=== PATIENT | female | born 1970 | race Caucasian/White ===

== ENCOUNTER 2020-03-04 16:54 | Emergency (ER) | payer MEDICARE, OTHER ==
[~2020-03-04] VITALS: Ht 165.1 cm; Wt 67.8 kg
--- NOTE | 2020-03-04 17:21 | ED Back Pain ---
General Chief Complaint: Back Problems Stated Complaint: BACK PAIN Source of Information: Patient Exam Limitations: No Limitations History of Present Illness Date Seen by Provider: Mar 04, 2020 Time Seen by Provider: 17:05 Initial Comments The patient is a pleasant 49-year-old female who presents for evaluation of left lower flank pain. She states that the pain began earlier this morning and feels internal and is not positional. She cannot find a tender location of elevated. She says that yesterday she was going up several flights of stairs in a hospital with an autistic family member who was pulling her and thinks that this could have caused some of her pain. 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 She denies fevers or chills, radiation of pain, abdominal pain, nausea or vomiting, diarrhea, rectal bleeding, urinary complaints, focal weakness or numbness. She is alert and oriented 4, calm, and appears to be in no distress this time. She does report a history of chronic back pain and takes hydrocodone and Flexeril for it. She drove herself to the emergency Department today and was able to angulate to the room without difficulty or assistance. Timing/Duration: 24 Hours Severity: Moderate Pain/Injury Location: Back Modifying Factors: Improves With Movement (makes it worse (such as climbing stairs)) Associated Symptoms: denies symptoms Allergies and Home Medications Allergies Coded Allergies: Sulfa (Sulfonamide Antibiotics) (Verified Allergy, Unknown, 03/04/20) sulfamethoxazole (Verified Allergy, Unknown, 03/04/20) trimethoprim (Verified Allergy, Unknown, 03/04/20) Patient Home Medication List Home Medication List Reviewed: Yes Review of Systems Constitutional: no symptoms reported EENTM: no symptoms reported Respiratory: no symptoms reported Cardiovascular: no symptoms reported Gastrointestinal: no symptoms reported Genitourinary: no symptoms reported Musculoskeletal: back pain Skin: no symptoms reported Psychiatric/Neurological: No Symptoms Reported All Other Systems Reviewed Negative Unless Noted: Yes Past Rkngbkq-Szvuze-Kmsfcn Hx Past Med/Social Hx: Reviewed Nursing Past Med/Soc Hx Patient Social History Recent Foreign Travel: No Contact w/Someone Who Travel: No Physical Abuse: No Sexual Abuse: No Mistreated: No Fear: No Physical Exam Vital Signs Vital Signs - First Documented 03/04/20 17:00 Temp 36.6 Pulse 91 Resp 18 B/P (MAP) 117/90 (99) Pulse Ox 99 O2 Delivery Room Air Capillary Refill : Height, Weight, BMI Height: '" Weight: lbs. oz. kg; BMI Method: General Appearance: No Apparent Distress, WD/WN HEENT: PERRL/EOMI, Pharynx Normal Neck: Full Range of Motion, Non Tender, Supple Cardiovascular: Regular Rate, Rhythm, No Edema, Normal Peripheral Pulses Respiratory: Lungs Clear, Normal Breath Sounds, No Accessory Muscle Use, No Respiratory Distress Gastrointestinal: No Organomegaly, No Pulsatile Mass, Non Tender, Soft Back: CVA Tenderness (L) (mild left, +spasm present, mild left vertebral ttp in L2-4 region) Extremity: Normal Capillary Refill, Normal Inspection, Normal Range of Motion, Non Tender, No Pedal Edema Neurologic/Psychiatric: Alert, Oriented x3, No Motor/Sensory Deficits, Normal Mood/Affect Skin: Normal Color, Warm/Dry Progress/Results/Core Measures Results/Orders Lab Results Laboratory Tests Test 03/04/20 17:35 Range/Units My Orders Orders - AMIE AUSTIN DO Comprehensive Metabolic Panel (03/04/20 17:16) Ketorolac Injection (Toradol Injection) (03/04/20 17:30) Lumbar Spine 2 Or 3 View (03/04/20 17:21) Medications Given in ED Current Medications Medications Dose Ordered Sig/Joaquin Route Start Time Stop Time Status Last Admin Dose Admin Ketorolac Tromethamine 60 mg ONCE ONCE IM 03/04/20 17:30 03/04/20 17:31 DC 03/04/20 17:35 60 MG Vital Signs/I&O 03/04/20 17:00 Temp 36.6 Pulse 91 Resp 18 B/P (MAP) 117/90 (99) Pulse Ox 99 O2 Delivery Room Air Progress Progress Note : Progress Note @1740 - patient updated on imaging results which are acutely unremarkable. She is ambulating without difficulty. Advised the patient to take the prescribed medicine as directed and to return to the emergency department for new or worsening symptoms and advised patient to follow up with her PCP in the next 1-2 days. Diagnostic Imaging Diagonstic Imaging: Xray Comments [facility], [place] NAME: MAIRA GOMEZ [facility] REC#: [id number] PT STATUS: REG ER : 1970 PHYSICIAN: AMIE AUSTIN DO ADMIT DATE: 03/04/20/ER FS Draft Date of Exam:03/04/20 LUMBAR SPINE 2 OR 3 VIEW INDICATION: Low back pain since earlier in the morning. TECHNIQUE: AP, lateral and spot imaging of the lumbar spine. CORRELATION STUDY: None. FINDINGS: Postoperative changes of posterior fusion with transpedicular screws and interconnecting rods at the L4 and L5 level. Intervertebral disc spacer device is also present. There is lucency over the L4 screws, right greater than left, suggestive of loosening. There is leftward curvature of the lumbar spine, apex at L3. Disc space narrowing at essentially all levels but most severe at the nonfused segments and greatest on the right along the concavity of the scoliotic curvature. There is no suggestion for acute bony abnormality. Prominent endplate lipping and marginal osteophyte formation, particularly at the L4, L3 and L2 levels. Various degrees of hypertrophic facet arthropathy are present. Underlying foraminal and/or canal narrowing not excluded. SI joints are unremarkable. IMPRESSION: Posterior fusion at L4-L5 level. There are findings suggestive of loosening around the particularly L4 screws, right greater than left. Leftward curvature of the lumbar spine. Advanced lumbar degenerative changes with significant disc space narrowing at essentially all levels of the lumbar spine, most pronounced along the concavity of the curvature. No acute bony abnormality. Dictated on workstation # [id number] Dict: 03/04/201729 Trans: 03/04/201735 [facility] [id number] Interpreted by: AMBIKA BOWERS DO Electronically signed by: Departure Impression Primary Impression: Low back pain Additional Impression: Muscle spasm Disposition: 01 HOME, SELF-CARE Condition: Stable Departure-Patient Inst. Decision time for Depature: 17:42 Referrals: NO,LOCAL PHYSICIAN (PCP/Family) Primary Care Physician Patient Instructions: Back Muscle Strain (DC), Low Back Pain (DC), Muscle Spasms (DC) Add. Discharge Instructions: Take the prescribed medicine as directed. Follow-up with your doctor in the next 1-2 days. Return to the emergency Department immediately for new or worsening symptoms. Scripts Diazepam (Valium) 2 Mg Tablet 2 MG PO Q4H for 4 Days, #12 TAB Prov: AMIE AUSTIN DO 03/04/20 AMIE AUSTIN DO Mar 04, 2020 17:21
[2020-03-04] MEDS ORDERED: KETOROLAC 60 MG/2 ML VIAL IM ONE (17:30)
--- NOTE | 2020-03-04 17:37 | Diagnostic Imaging Report ---
INDICATION: Low back pain since earlier in the morning. TECHNIQUE: AP, lateral and spot imaging of the lumbar spine. CORRELATION STUDY: None. FINDINGS: Postoperative changes of posterior fusion with transpedicular screws and interconnecting rods at the L4 and L5 level. Intervertebral disc spacer device is also present. There is lucency over the L4 screws, right greater than left, suggestive of loosening. There is leftward curvature of the lumbar spine, apex at L3. Disc space narrowing at essentially all levels but most severe at the nonfused segments and greatest on the right along the concavity of the scoliotic curvature. There is no suggestion for acute bony abnormality. Prominent endplate lipping and marginal osteophyte formation, particularly at the L4, L3 and L2 levels. Various degrees of hypertrophic facet arthropathy are present. Underlying foraminal and/or canal narrowing not excluded. SI joints are unremarkable. IMPRESSION: Posterior fusion at L4-L5 level. There are findings suggestive of loosening around the particularly L4 screws, right greater than left. Leftward curvature of the lumbar spine. Advanced lumbar degenerative changes with significant disc space narrowing at essentially all levels of the lumbar spine, most pronounced along the concavity of the curvature. No acute bony abnormality. Dictated by: Dictated on workstation # [id number]
[2020-03-04] MEDS ORDERED: DIAZ2TAB PO (17:45)
[2020-03-04 17:54] LABS: BACTERIA,URINE LARGE /HPF; BILIRUBIN,URINE NEGATIVE (NEGATIVE); CLARITY,URINE CLOUDY; COLOR,URINE YELLOW; GLUCOSE, URINE (UA) NEGATIVE (NEGATIVE); KETONES,URINE 1+ (NEGATIVE); LEUKOCYTE ESTERASE ,URINE NEGATIVE (NEGATIVE); NITRITE,URINE NEGATIVE (NEGATIVE); PROTEIN,URINE NEGATIVE (NEGATIVE); SQUAMOUS EPITHELIAL CELL,UR 25-50 /HPF
[2020-03-04 18:02] LABS: ALANINE AMINOTRANSFERASE 23 U/L (0-55); ALBUMIN 4.3 GM/DL (3.2-4.5); ALKALINE PHOSPHATASE 100 U/L (40-136); BILIRUBIN,TOTAL 0.2 MG/DL (0.1-1.0); BUN/CREATININE RATIO 12; CALCIUM 9.1 MG/DL (8.5-10.1); CARBON DIOXIDE 24 MMOL/L (21-32); CHLORIDE 105 MMOL/L (98-107); CREATININE SERUM 0.91 MG/DL (0.60-1.30); GFR ESTIMATED > 60; GLUCOSE 111 MG/DL (70-105); POTASSIUM 4.1 MMOL/L (3.6-5.0); SODIUM 141 MMOL/L (135-145); TOTAL PROTEIN 7.1 GM/DL (6.4-8.2)
[2020-03-04 18:24] VITALS: BP 117/90
[2020-03-05] MEDS ORDERED: MORP15TA PO (10:51)
== END 2020-03-04 18:24 | disposition home or self-care (01) ==
LOC: ER FS 16:57
DX: M54.5 Low back pain (principal); M62.838 Other muscle spasm; Z88.2 Allergy status to sulfonamides; Z88.1 Allergy status to other antibiotic agents
CPT/HCPCS: 36415; 72100; 80053; 81000; 87077; 87088

== ENCOUNTER 2020-03-05 08:16 | Emergency (ER) | payer MEDICARE ==
[~2020-03-05 08:16] MED LIST: DIAZ2TAB PO
[2020-03-05] MEDS ORDERED: KETOROLAC 30 MG/ML VIAL IVP ONE (09:00)
[2020-03-05] MEDS ORDERED: HYDROmorphone 2 MG/ML VIAL (DILAUDID) IVP ONE (09:00)
[2020-03-05 09:10] LABS: HEMATOCRIT 40 % (35-52); MEAN CORPUSCULAR HEMOGLOBIN 30 PG (25-34); MEAN CORPUSCULAR VOLUME 93 FL (80-99); WHITE BLOOD COUNT 6.1 10^3/uL (4.3-11.0)
[2020-03-05 09:11] LABS: BASOPHILS % (AUTO) 1 % (0-10); EOSINOPHILS # (AUTO) 0.1 10^3/uL (0.0-0.3); EOSINOPHILS % (AUTO) 2 % (0-10); LYMPHOCYTES # (AUTO) 1.5 X 10^3 (1.0-4.0); LYMPHOCYTES % (AUTO) 25 % (12-44); MEAN CORPUSCULAR HGB CONC 33 G/DL (32-36); MEAN PLATELET VOLUME 8.9 FL (7.4-10.4); MONOCYTES # (AUTO) 0.4 X 10^3 (0.0-1.0); MONOCYTES % (AUTO) 6 % (0-12); NEUTROPHILS % (AUTO) 66 % (42-75); PLATELET COUNT 286 10^3/uL (130-400)
--- NOTE | 2020-03-05 09:25 | ED General ---
General Chief Complaint: Back Problems Stated Complaint: LT BACK PAIN Nursing Triage Note: Was seen last night in ED for back pain and prescribed vallium. Took last dose at 9 pm, woke up at 3 with severe pain and unable to get out of bed. Has been using heating pad for pain as well. Is rating pain in left lower back at 10/10. Only has one kidney on the R side. Nursing Sepsis Screen: No Definite Risk History of Present Illness Date Seen by Provider: Mar 05, 2020 Time Seen by Provider: 09:24 Initial Comments Patient presenting to emergency department for evaluation of back pain that has been going on for several days and she says it worsened yesterday and presented to emergency department here. She had x-rays done that showed no acute pathology however there was suggestion of possible loose hardware. Her pain is actually on her left flank region that radiates somewhat down into the left lateral lumbar region and is worsened with movements and palpation she denies any other symptoms including no weakness numbness tingling saddle anesthesia bowel or bladder incontinence fevers chills dysuria hematuria nausea vomiting diarrhea or constipation. She says that she had a nephrectomy on the left side. She says that her neurosur[facility] and she thinks the surgeon's name was Dr. Pereira. She is in no obvious distress with normal vital signs. Allergies and Home Medications Allergies Coded Allergies: Sulfa (Sulfonamide Antibiotics) (Verified Allergy, Unknown, 03/04/20) sulfamethoxazole (Verified Allergy, Unknown, 03/04/20) trimethoprim (Verified Allergy, Unknown, 03/04/20) Home Medications Diazepam 2 Mg Tablet, 2 MG PO Q4H Prescribed by: AMIE AUSTIN on 03/04/20 3471 Patient Home Medication List Home Medication List Reviewed: Yes Review of Systems Review of Systems Constitutional: no symptoms reported Cardiovascular: no symptoms reported Gastrointestinal: no symptoms reported Genitourinary: no symptoms reported Musculoskeletal: back pain Psychiatric/Neurological: No Symptoms Reported All Other Systems Reviewed Negative Unless Noted: Yes Past Vbvxzxw-Eidovi-Spesqh Hx Patient Social History Alcohol Use: Denies Use Recreational Drug Use: No Smoking Status: Never a Smoker 2nd Hand Smoke Exposure: No Recent Foreign Travel: No Contact w/Someone Who Travel: No Recent Infectious Disease Expo: No Recent Hopitalizations: No Seasonal Allergies Seasonal Allergies: No Past Medical History Surgeries: Yes (Spinal fusion x 3, left nephrectomy) Nephrectomy, Orthopedic Respiratory: No Cardiac: No Neurological: Yes Headaches /Migraines Genitourinary: Yes (1 kidney) Gastrointestinal: No Musculoskeletal: Yes Degenerate Disk Disease, Chronic Back Pain Endocrine: No HEENT: No Cancer: No Psychosocial: Yes Depression Integumentary: No Blood Disorders: No Physical Exam Vital Signs Vital Signs - First Documented 03/05/20 08:24 Temp 36.0 Pulse 96 Resp 16 B/P (MAP) 119/104 (109) Pulse Ox 100 Capillary Refill : Less Than 3 Seconds Height, Weight, BMI Height: '" Weight: lbs. oz. kg; 24.00 BMI Method: General Appearance: No Apparent Distress, WD/WN Neck: Supple Respiratory: No Respiratory Distress Cardiovascular: Regular Rate, Rhythm Gastrointestinal: Non Tender, Soft Back: CVA Tenderness (L), Other (L lumbar paraspinal ttp) Neurologic/Psychiatric: Alert, Oriented x3 Skin: Warm/Dry Progress/Results/Core Measures Suspected Sepsis Recent Fever Within 48 Hours: No Infection Criteria Present: None New/Unexplained Altered Menta: No Sepsis Screen: No Definite Risk SIRS Temperature: Pulse: 96 Respiratory Rate: 16 Laboratory Tests 03/05/20 09:00: White Blood Count 6.1 Blood Pressure 119 /104 Mean: 109 Laboratory Tests 03/05/20 09:00: Creatinine 0.91, Platelet Count 286, Total Bilirubin 0.4 Results/Orders Lab Results Laboratory Tests Test 03/05/20 09:00 03/05/20 10:25 Range/Units White Blood Count 6.1 4.3-11.0 10^3/uL Red Blood Count 4.28 L 4.35-5.85 10^6/uL Hemoglobin 13.0 11.5-16.0 G/DL Hematocrit 40 35-52 % Mean Corpuscular Volume 93 80-99 FL Mean Corpuscular Hemoglobin 30 25-34 PG Mean Corpuscular Hemoglobin Concent 33 32-36 G/DL Red Cell Distribution Width 13.2 10.0-14.5 % Platelet Count 286 130-400 10^3/uL Mean Platelet Volume 8.9 7.4-10.4 FL Immature Granulocyte % (Auto) 0 % Neutrophils (%) (Auto) 66 42-75 % Lymphocytes (%) (Auto) 25 12-44 % Monocytes (%) (Auto) 6 0-12 % Eosinophils (%) (Auto) 2 0-10 % Basophils (%) (Auto) 1 0-10 % Neutrophils # (Auto) 4.0 1.8-7.8 X 10^3 Lymphocytes # (Auto) 1.5 1.0-4.0 X 10^3 Monocytes # (Auto) 0.4 0.0-1.0 X 10^3 Eosinophils # (Auto) 0.1 0.0-0.3 10^3/uL Basophils # (Auto) 0.0 0.0-0.1 10^3/uL Immature Granulocyte # (Auto) 0.0 0.0-0.1 10^3/uL Sodium Level 138 135-145 MMOL/L Potassium Level 4.2 3.6-5.0 MMOL/L Chloride Level 105 98-107 MMOL/L Carbon Dioxide Level 21 21-32 MMOL/L Anion Gap 12 5-14 MMOL/L Blood Urea Nitrogen 11 7-18 MG/DL Creatinine 0.91 0.60-1.30 MG/DL Estimat Glomerular Filtration Rate > 60 BUN/Creatinine Ratio 12 Glucose Level 105 70-105 MG/DL Calcium Level 9.0 8.5-10.1 MG/DL Corrected Calcium 8.8 8.5-10.1 MG/DL Total Bilirubin 0.4 0.1-1.0 MG/DL Aspartate Amino Transf (AST/SGOT) 21 5-34 U/L Alanine Aminotransferase (ALT/SGPT) 22 0-55 U/L Alkaline Phosphatase 98 40-136 U/L Total Protein 7.0 6.4-8.2 GM/DL Albumin 4.2 3.2-4.5 GM/DL Urine Color YELLOW Urine Clarity CLEAR Urine pH 7.0 5-9 Urine Specific Bulan 1.020 1.016-1.022 Urine Protein NEGATIVE NEGATIVE Urine Glucose (UA) NEGATIVE NEGATIVE Urine Ketones NEGATIVE NEGATIVE Urine Nitrite NEGATIVE NEGATIVE Urine Bilirubin NEGATIVE NEGATIVE Urine Urobilinogen 0.2 < = 1.0 MG/DL Urine Leukocyte Esterase NEGATIVE NEGATIVE Urine RBC (Auto) NEGATIVE NEGATIVE Urine RBC NONE /HPF Urine WBC NONE /HPF Urine Squamous Epithelial Cells 25-50 H /HPF Urine Crystals NONE /LPF Urine Bacteria FEW H /HPF Urine Casts NONE /LPF Urine Mucus NEGATIVE /LPF Urine Culture Indicated NO My Orders Orders - KIM FERNANDEZ DO Cbc With Automated Diff (03/05/20 08:47) Comprehensive Metabolic Panel (03/05/20 08:47) Ua Culture If Indicated (03/05/20 08:47) Iv/Invasive Line Insertion .IV start (03/05/20 08:47) Hydromorphone Injection (Dilaudid Inject (03/05/20 09:00) Dexamethasone Injection (Decadron Inje (03/05/20 09:00) Ketorolac Injection (Toradol Injection) (03/05/20 09:00) Ct Lumbar Spine Wo (03/05/20 08:47) Ct Abd/Pelvis Wo(Kidney Stone) (03/05/20 08:47) Medications Given in ED Current Medications Medications Dose Ordered Sig/Joaquin Route Start Time Stop Time Status Last Admin Dose Admin Dexamethasone Sodium Phosphate 10 mg ONCE ONCE IV 03/05/20 09:00 03/05/20 09:01 DC 03/05/20 08:57 10 MG Hydromorphone HCl 1 mg ONCE ONCE IVP 03/05/20 09:00 03/05/20 09:01 DC 03/05/20 08:57 1 MG Ketorolac Tromethamine 15 mg ONCE ONCE IVP 03/05/20 09:00 03/05/20 09:01 DC 03/05/20 08:58 15 MG Vital Signs/I&O 03/05/20 08:24 Temp 36.0 Pulse 96 Resp 16 B/P (MAP) 119/104 (109) Pulse Ox 100 Capillary Refill : Less Than 3 Seconds Blood Pressure Mean: 109 Progress Note : Progress Note Patient has no red flag signs or symptoms necessitating emergent MRI. The most advanced imaging I can provide it is getting a CT scan of her abdomen pelvis and lumbar spines I will do this. I will continue to treat her pain and reassess. Patient's CT of her lumbar spine did not show any acute pathology however discuss with her that she would likely benefit from an MRI given her back pain issues and history. On CT abdomen and pelvis appears that she has multiple incidental findings including constipation and mesenteric adenitis which could be causing her some pain given the location of her pain. She feels much better after getting Toradol and Dilaudid and Decadron here and she is up ambulating and drinking fluids with no difficulty. Given she appears well with benign exam normal vital signs and benign workup I will discharge her in stable condition and told to follow with primary care provider within 2-3 days for recheck and come back to the ED sooner with worsening pain fevers vomiting or other general concerns. Patient aware and agreeable with plan and verbalized understanding of the above instructions. Departure Impression Primary Impression: Low back pain Qualified Codes: M54.5 - Low back pain Additional Impressions: Mesenteric adenitis Constipation Disposition: 01 HOME, SELF-CARE Condition: Stable Departure-Patient Inst. Referrals: NO,LOCAL PHYSICIAN (PCP/Family) Primary Care Physician Patient Instructions: Mesenteric Lymphadenitis (DC) Add. Discharge Instructions: Drink plenty of fluids, eat a soft non-irritating diet. Take 400mg ibuprofen otc every 6 hours for pain. Use topical lidocaine. Take miralax once daily. You can still use your Valium. Follow with pcp in 2-3 days. Come back with any new or worsening symptoms. Thank you. All discharge instructions reviewed with patient and/or family. Voiced understanding. Work/School Note: Work Release Form Date Seen in the Emergency Department: Mar 05, 2020 Return to Work: Mar 07, 2020 Restrictions: No Restrictions KIM FERNANDEZ DO Mar 05, 2020 09:25
[2020-03-05 09:27] LABS: POTASSIUM 4.2 MMOL/L (3.6-5.0); SODIUM 138 MMOL/L (135-145)
[2020-03-05 09:28] LABS: ALANINE AMINOTRANSFERASE 22 U/L (0-55); ALBUMIN 4.2 GM/DL (3.2-4.5); ALKALINE PHOSPHATASE 98 U/L (40-136); BILIRUBIN,TOTAL 0.4 MG/DL (0.1-1.0); BUN/CREATININE RATIO 12; CARBON DIOXIDE 21 MMOL/L (21-32); CHLORIDE 105 MMOL/L (98-107); CREATININE SERUM 0.91 MG/DL (0.60-1.30); GFR ESTIMATED > 60; GLUCOSE 105 MG/DL (70-105)
--- NOTE | 2020-03-05 09:40 | Diagnostic Imaging Report ---
PROCEDURE: CT lumbar spine without contrast. TECHNIQUE: Multiple contiguous axial images were obtained through the lumbar spine without the use of intravenous contrast. Sagittal and coronal reformations were then performed. Auto Exposure Controls were utilized during the CT exam to meet ALARA standards for radiation dose reduction. INDICATION: Left-sided abdominal and back pain. COMPARISON: None. FINDINGS: There is a slight lumbar scoliosis. There has been prior lumbar fusion of L4-L5. Pedicle screws and stabilization rods are well seated. Interbody fusion device is intact. Multilevel degenerative disc disease and facet joint arthropathy is seen. This is most pronounced at the L3-L4 level. There is moderate central canal bilateral foraminal stenosis at this level. No inflammatory process, traumatic malalignment or fracture is seen. Paraspinous soft tissues and visualized SI joints are symmetric. No osseous lesion is present. IMPRESSION: 1. Multilevel degenerative disc disease and facet degenerative arthropathy most pronounced at the L3-L4 level. This may be further evaluated with nonemergent MRI or CT myelography. 2. No traumatic malalignment, fracture or inflammatory change. 3. Not mentioned above surgically absent left kidney. Dictated by: Dictated on workstation # [id number]
--- NOTE | 2020-03-05 09:49 | Diagnostic Imaging Report ---
PROCEDURE: CT urinary tract, rule out kidney stone. TECHNIQUE: Multiple contiguous axial images were obtained through the abdomen and pelvis without the use of intravenous contrast. Auto Exposure Controls were utilized during the CT exam to meet ALARA standards for radiation dose reduction. INDICATION: Left-sided abdominal and back pain and left nephrectomy. COMPARISON: None. FINDINGS: Lung bases are clear. The gallbladder, solid organs, vascular structures and small bowel are unremarkable. There is no free air or free fluid. Left kidney is surgically absent. There is no retroperitoneal lymphadenopathy. There are a few prominent lymph nodes in the left mesentery which could represent mesenteric adenitis. There is no bulky lymphadenopathy. There is mild constipation throughout the colon. There are a few diverticuli of the sigmoid colon without diverticulitis. The uterus is intact. Distal ureters and urinary bladder are normal. Osseous structures are age-appropriate. IMPRESSION: 1. Suspect benign mesenteric adenitis. 2. Mild constipation throughout the colon without obstruction. 3. Diverticulosis sigmoid colon without diverticulitis. 4. Not mentioned above trace free fluid in the cul-de-sac likely from physiologic follicles. 5. Surgically absent left kidney. There was no mass identified. Dictated by: Dictated on workstation # [id number]
[2020-03-05 10:40] LABS: BACTERIA,URINE FEW /HPF; BILIRUBIN,URINE NEGATIVE (NEGATIVE); CLARITY,URINE CLEAR; COLOR,URINE YELLOW; GLUCOSE, URINE (UA) NEGATIVE (NEGATIVE); KETONES,URINE NEGATIVE (NEGATIVE); LEUKOCYTE ESTERASE ,URINE NEGATIVE (NEGATIVE); NITRITE,URINE NEGATIVE (NEGATIVE); PROTEIN,URINE NEGATIVE (NEGATIVE); SQUAMOUS EPITHELIAL CELL,UR 25-50 /HPF
[2020-03-05] MEDS ORDERED: MORP15TA PO (10:51)
[2020-03-05 10:57] VITALS: BP 111/60
== END 2020-03-05 10:54 | disposition home or self-care (01) ==
LOC: EDUNIT# 08:16 → ER FS 08:18
DX: M54.5 Low back pain (principal); I88.0 Nonspecific mesenteric lymphadenitis; K59.00 Constipation, unspecified; F32.9 Major depressive disorder, single episode, unspecified; Z88.2 Allergy status to sulfonamides; Z88.1 Allergy status to other antibiotic agents; Z90.5 Acquired absence of kidney
CPT/HCPCS: 36415; 72131; 74176; 80053; 81000; 85025

== ENCOUNTER 2020-08-26 17:25 | Emergency (ER) | payer MEDICARE, MEDICAID ==
[~2020-08-26] VITALS: Ht 165.1 cm; Wt 66.5 kg
[~2020-08-26 17:25] MED LIST changes: +MORP15TA PO
[2020-08-26 18:01] LABS: HEMATOCRIT 38 % (35-52); HEMOGLOBIN 12.6 G/DL (11.5-16.0); LYMPHOCYTES % (AUTO) 33 % (12-44); MEAN CORPUSCULAR HEMOGLOBIN 31 PG (25-34); MEAN CORPUSCULAR HGB CONC 33 G/DL (32-36); MEAN CORPUSCULAR VOLUME 95 FL (80-99); MEAN PLATELET VOLUME 8.9 FL (7.4-10.4); NEUTROPHILS % (AUTO) 58 % (42-75); PLATELET COUNT 274 10^3/uL (130-400); WHITE BLOOD COUNT 6.7 10^3/uL (4.3-11.0)
[2020-08-26 18:02] LABS: BASOPHILS % (AUTO) 1 % (0-10); EOSINOPHILS # (AUTO) 0.1 10^3/uL (0.0-0.3); EOSINOPHILS % (AUTO) 2 % (0-10); LYMPHOCYTES # (AUTO) 2.2 X 10^3 (1.0-4.0); MONOCYTES # (AUTO) 0.4 X 10^3 (0.0-1.0); MONOCYTES % (AUTO) 6 % (0-12); NEUTROPHILS # (AUTO) 3.9 X 10^3 (1.8-7.8)
--- NOTE | 2020-08-26 18:05 | Diagnostic Imaging Report ---
EXAMINATION: Chest 1 view. HISTORY: Chest pain. COMPARISON: None available. FINDINGS: Heart size and pulmonary vasculature are normal. The lungs are clear without consolidation, pleural effusion, or pneumothorax. The osseous structures are intact. IMPRESSION: No acute radiographic abnormality in the chest. Dictated by: Dictated on workstation # [id number]
--- NOTE | 2020-08-26 18:12 | ED Chest Pain ---
General Chief Complaint: Chest Pain Stated Complaint: LT SIDE CHEST/SHOULDER PAIN Nursing Triage Note: Patient reports she was wrestling with her grandson and shortly after began having a sharp pain in her left upper chest and back. Nursing Sepsis Screen: No Definite Risk Source: patient History of Present Illness Date Seen by Provider: Aug 26, 2020 Time Seen by Provider: 17:30 Initial Comments Patient is a 50-year-old female who presents with left anterior chest pain rating to left shoulder blade. Symptom onset began 2 hours prior to ED arrival. Chest pain is described as sharp, continuous, rated moderate and is worse with movement. It does not reproduce with deep breathing. Or exertion. No medications taken prior to ED arrival. Patient states she is visiting from out of town and was wrestling with her young child 10 minutes prior to symptoms beginning. She denies hitting her self or straining left shoulder or chest during wrestling match. She denies shortness of breath, cough, fever chills, sweats. No sore throat, nausea vomiting or sweats. History of dyslipidemia. No history of CAD, hypertension, diabetes, smoking or family history of early coronary disease. Timing/Duration: 1-3 hours Severity/Quality: moderate, sharp Location: other Radiation: other Prior CP/Workup: other Modifying Factors: improves with other ASA po MANAGER PROJECT: No NTG SL MANAGER PROJECT: No Allergies and Home Medications Allergies Coded Allergies: Sulfa (Sulfonamide Antibiotics) (Verified Allergy, Unknown, 03/04/20) sulfamethoxazole (Verified Allergy, Unknown, 03/04/20) trimethoprim (Verified Allergy, Unknown, 03/04/20) Home Medications Diazepam 2 Mg Tablet, 2 MG PO Q4H Prescribed by: AMIE AUSTIN on 03/04/20 1768 Morphine Sulfate 15 Mg Tablet, 15 MG PO qhs PRN for PAIN-SEVERE (8-10) Prescribed by: KIM FERNANDEZ on 03/05/20 1051 Patient Home Medication List Home Medication List Reviewed: Yes Review of Systems Review of Systems Constitutional: see HPI EENTM: See HPI Respiratory: See HPI Cardiovascular: See HPI Gastrointestinal: See HPI Genitourinary: See HPI Musculoskeletal: see HPI Skin: see HPI Psychiatric/Neurological: See HPI Endocrine: See HPI Hematologic/Lymphatic: See HPI All Other Systems Reviewed Negative Unless Noted: Yes Past [id number]-[id number] Hx Past Med/Social Hx: Reviewed Nursing Past Med/Soc Hx Patient Social History Alcohol Use: Denies Use Smoking Status: Never a Smoker 2nd Hand Smoke Exposure: No Recent Infectious Disease Expo: No Recent Hopitalizations: No Seasonal Allergies Seasonal Allergies: No Past Medical History Surgeries: Yes (Spinal fusion x 3, left nephrectomy, right hand replantation) Appendectomy, Nephrectomy, Orthopedic, Tubal Ligation Respiratory: Yes Asthma Cardiac: No Neurological: Yes Headaches /Migraines Genitourinary: Yes (1 kidney) Gastrointestinal: No Musculoskeletal: Yes Degenerate Disk Disease, Chronic Back Pain Endocrine: No HEENT: No Cancer: No Psychosocial: Yes Depression Integumentary: No Blood Disorders: No Physical Exam Vital Signs Vital Signs - First Documented 08/26/20 17:27 Temp 37.0 Pulse 87 Resp 18 B/P (MAP) 116/64 (81) Pulse Ox 100 O2 Delivery Room Air Capillary Refill : Less Than 3 Seconds Height, Weight, BMI Height: '" Weight: lbs. oz. kg; 24.00 BMI Method: General Appearance: No Apparent Distress, Mild Distress (Secondary to pain) HEENT: PERRL/EOMI, Normal ENT Inspection, Pharynx Normal Neck: Non Tender, Supple Respiratory: Chest Non Tender, Lungs Clear, Normal Breath Sounds, No Accessory Muscle Use, No Respiratory Distress Cardiovascular: Regular Rate, Rhythm, No Edema, No Murmur Gastrointestinal: Non Tender, Soft Extremity: Normal Capillary Refill, Normal Inspection Neurologic/Psychiatric: Alert, Oriented x3 Skin: Normal Color Lymphatic: No Adenopathy Focused Exam Sepsis Stage: Ruled Out Progress/Results/Core Measures Results/Orders Lab Results Laboratory Tests Test 08/26/20 17:50 08/26/20 19:46 Range/Units White Blood Count 6.7 4.3-11.0 10^3/uL Red Blood Count 4.04 L 4.35-5.85 10^6/uL Hemoglobin 12.6 11.5-16.0 G/DL Hematocrit 38 35-52 % Mean Corpuscular Volume 95 80-99 FL Mean Corpuscular Hemoglobin 31 25-34 PG Mean Corpuscular Hemoglobin Concent 33 32-36 G/DL Red Cell Distribution Width 12.8 10.0-14.5 % Platelet Count 274 130-400 10^3/uL Mean Platelet Volume 8.9 7.4-10.4 FL Immature Granulocyte % (Auto) 0 % Neutrophils (%) (Auto) 58 42-75 % Lymphocytes (%) (Auto) 33 12-44 % Monocytes (%) (Auto) 6 0-12 % Eosinophils (%) (Auto) 2 0-10 % Basophils (%) (Auto) 1 0-10 % Neutrophils # (Auto) 3.9 1.8-7.8 X 10^3 Lymphocytes # (Auto) 2.2 1.0-4.0 X 10^3 Monocytes # (Auto) 0.4 0.0-1.0 X 10^3 Eosinophils # (Auto) 0.1 0.0-0.3 10^3/uL Basophils # (Auto) 0.0 0.0-0.1 10^3/uL Immature Granulocyte # (Auto) 0.0 0.0-0.1 10^3/uL D-Dimer 0.36 0.00-0.49 UG/ML Sodium Level 143 135-145 MMOL/L Potassium Level 4.1 3.6-5.0 MMOL/L Chloride Level 109 H 98-107 MMOL/L Carbon Dioxide Level 24 21-32 MMOL/L Anion Gap 10 5-14 MMOL/L Blood Urea Nitrogen 10 7-18 MG/DL Creatinine 0.97 0.60-1.30 MG/DL Estimat Glomerular Filtration Rate 60 BUN/Creatinine Ratio 10 Glucose Level 87 70-105 MG/DL Calcium Level 9.0 8.5-10.1 MG/DL Corrected Calcium 8.5-10.1 MG/DL Total Bilirubin 0.2 0.1-1.0 MG/DL Aspartate Amino Transf (AST/SGOT) 20 5-34 U/L Alanine Aminotransferase (ALT/SGPT) 19 0-55 U/L Alkaline Phosphatase 105 40-136 U/L Troponin I < 0.30 < 0.30 <0.30 NG/ML Pro-B-Type Natriuretic Peptide 133.2 H <75.0 PG/ML Total Protein 7.1 6.4-8.2 GM/DL Albumin 4.6 H 3.2-4.5 GM/DL My Orders Orders - LYNNE COTTON DO Cbc With Automated Diff (08/26/20 17:46) Comprehensive Metabolic Panel (08/26/20 17:46) Troponin I Fs (08/26/20 17:46) Chest 1 View Ap/Pa Only (08/26/20 17:46) Ekg-Prn For Chest Pain Or Rhyt (08/26/20 17:46) Probnp Fs (08/26/20 17:46) Acetaminophen Tablet (Tylenol Tablet) (08/26/20 18:15) Fibrin Degradation Products (08/26/20 18:32) Troponin I Fs (08/26/20 19:09) Medications Given in ED Current Medications Medications Dose Ordered Sig/Joaquin Route Start Time Stop Time Status Last Admin Dose Admin Acetaminophen 1,000 mg ONCE ONCE PO 08/26/20 18:15 08/26/20 18:16 DC 08/26/20 18:19 1,000 MG Vital Signs/I&O 08/26/20 17:27 Temp 37.0 Pulse 87 Resp 18 B/P (MAP) 116/64 (81) Pulse Ox 100 O2 Delivery Room Air Blood Pressure Mean: 81 Departure Communication (Admissions) EKG: Normal sinus rhythm, no acute ST-T wave changes. Chest x-ray: No acute cardiopulmonary disease per radiology report. Atypical chest pain occurring following exercise but not during. EKG, repeat troponin are negative. Chest x-ray, lab, D-dimer negative. Suspect musculoskeletal strain. Recommend supportive care with watchful waiting PCP follow-up. Return precautions reviewed. Patient verbalizes understanding agreement discharge instructions prior to departure. Impression Primary Impression: Chest pain Disposition: 01 HOME, SELF-CARE Condition: Stable Departure-Patient Inst. Decision time for Depature: 20:21 Referrals: NO,LOCAL PHYSICIAN (PCP/Family) Primary Care Physician Patient Instructions: Chest Pain That Is Not Caused by the Heart (DC) Add. Discharge Instructions: Your evaluated in the emergency department for chest pain going to your left shoulder blade. Chest x-ray labs and EKG were performed and are nondiagnostic. The exact cause of your symptoms stopping related but is likely musculoskeletal in nature. Please take ibuprofen or Tylenol for pain and follow-up with your PCP in 3 to 5 days if symptoms persist. Return to the ED if new or worsening symptoms. All discharge instructions reviewed with patient and/or family. Voiced understanding. LYNNE COTTON DO Aug 26, 2020 18:12
[2020-08-26] MEDS ORDERED: ACETAMINOPHEN 500 MG TAB (TYLENOL) PO ONE (18:15)
[2020-08-26 18:20] LABS: ALANINE AMINOTRANSFERASE 19 U/L (0-55); ALBUMIN 4.6 GM/DL (3.2-4.5); ALKALINE PHOSPHATASE 105 U/L (40-136); BILIRUBIN,TOTAL 0.2 MG/DL (0.1-1.0); BUN/CREATININE RATIO 10; CARBON DIOXIDE 24 MMOL/L (21-32); CHLORIDE 109 MMOL/L (98-107); CREATININE SERUM 0.97 MG/DL (0.60-1.30); GFR ESTIMATED 60; GLUCOSE 87 MG/DL (70-105); POTASSIUM 4.1 MMOL/L (3.6-5.0); SODIUM 143 MMOL/L (135-145); TOTAL PROTEIN 7.1 GM/DL (6.4-8.2)
[2020-08-26 20:30] VITALS: BP 99/54
== END 2020-08-26 20:30 | disposition home or self-care (01) ==
LOC: EDUNIT# 17:25 → ER FS 17:27
DX: R07.9 Chest pain, unspecified (principal); Z88.2 Allergy status to sulfonamides; Z88.1 Allergy status to other antibiotic agents
CPT/HCPCS: 36415; 71045; 80053; 83880; 84484; 85025; 85379